=== PATIENT | female | born 1995 | race Caucasian/White ===

== ENCOUNTER 2017-08-24 21:51 | Inpatient (IN) | payer MEDICAID ==
[~2017-08-24] VITALS: Ht 160 cm; Wt 72.6 kg
[~2017-08-24 21:51] MED LIST: NORPTMEDS CO
[2017-08-24] MEDS ORDERED: PENICILLIN G POT 5MIL/D5 50ML 50 ML IV ONE (22:01)
[2017-08-24] MEDS ORDERED: LIDOCAINE 2%HCL (LOCAL ANESTH.) INJ 20ML MDV ONE (22:01)
[2017-08-24] MEDS ORDERED: LACT. RINGERS/OXYTOCIN 20UNITS 1,000 ML IV ONE (22:02)
[2017-08-24] MEDS ORDERED: LACT. RINGERS/OXYTOCIN 20UNITS 1,000 ML IV SCH (22:18)
[2017-08-24] MEDS ORDERED: PHISODERM TOP SOLN 240ML BTL TOP PRN (22:30)
[2017-08-24] MEDS ORDERED: WITCH HAZEL-GLYCERIN PAD TOP PRN (22:30)
[2017-08-24] MEDS ORDERED: DERMOPLAST 60ML BOTTLE TOP PRN (22:30)
[2017-08-24] MEDS ORDERED: LIDOCAINE 2%HCL (LOCAL ANESTH.) INJ 20ML MDV IJ ONE (22:30)
[2017-08-24 23:03] LABS: Basophils # (auto) 0.1 uL; Basophils % (auto) 0.4 % (0.0-2.0); Eosinophils # (auto) 0 uL; Eosinophils % (auto) 0.3 % (0.0-7.0); Hematocrit 37.7 % (36.0-46.0); Hemoglobin 12.5 g/dL (12.2-16.2); Lymphocytes # (auto) 1.4 uL; Lymphocytes % (auto) 10.3 % (10.0-50.0); Mean Corpuscular Hemoglobin 30.7 pg (28.0-32.0); Mean Corpuscular Hgb Conc. 33.3 g/dL (32.0-36.0); Mean Corpuscular Volume 92.3 fL (80.0-100.0); Mean Platelet Volume 9.6 fL (6.9-10.8); Neutrophils # (auto) 11.4 uL; Platelet Count (auto) 173 10^3/uL (140-450); Red Cell Distribution Width 14.2 % (11.8-14.3)
[2017-08-24 23:18] LABS: INR 0.88 (0.9-1.15); Partial Thromboplastin Time 26.2 sec (22.64-33.71); Prothrombin Time 9.6 sec (9.37-12.3)
[2017-08-24 23:24] LABS: Potassium 3.3 mmol/L (3.5-5.1)
[2017-08-24 23:28] LABS: Albumin 2.8 g/dL (3.4-5.0); BUN/Creatinine Ratio 8.9; Calcium 8.6 mg/dL (8.5-10.1)
[2017-08-24 23:31] LABS: Bilirubin, Total 0.3 mg/dL (0.2-1.0); Total Protein 7.3 g/dL (6.4-8.2)
[2017-08-25] MEDS: AZITHROMYCIN 250 MG TAB PO ONE ×2 (01:50→07:17)
[2017-08-25] MEDS ORDERED: ONDANSETRON HCL 4 MG/2 ML VIAL IV PRN (01:50)
[2017-08-25] MEDS ORDERED: IBUPROFEN 600 MG TAB PO ONE (03:01)
[2017-08-25 04:30] VITALS: BP 109/57
[2017-08-25 05:45] LABS: Urine Bilirubin Negative (Negative); Urine Blood 3+ /uL (Negative); Urine Ca Oxalate Crystal MANY (None Seen); Urine Color Red (Yellow); Urine Glucose Normal (Normal); Urine Ketone 2+ (Negative); Urine Mucus FEW (None Seen); Urine Nitrite Negative (Negative); Urine RBC 6389 /hpf (0 - 4); Urine Urobilinogen Normal (Negative); Urine pH 8.5 (5.0-8.0)
[2017-08-25 07:07] VITALS: BP 111/69
[2017-08-25] MEDS ORDERED: PREN-96 PO (07:10)
[2017-08-25 12:32] VITALS: BP 114/69
[2017-08-25] MEDS: IBUPROFEN 600 MG TAB PO PRN ×2 (14:30→21:45)
[2017-08-25 15:46] VITALS: BP 108/75
[2017-08-25 20:00] VITALS: BP 110/70
[2017-08-25 22:30] VITALS: BP 115/58
[2017-08-26 03:30] VITALS: BP 107/68
[2017-08-26 07:17] VITALS: BP 121/73
== END 2017-08-26 11:25 | disposition home or self-care (01) | DRG 560 ==
LOC: LDRP 21:51 → OBSVTOIN 21:51 → LDRP 22:37
PROVIDERS: ADMIT Specialist; ATTEND Specialist
PROC: 10E0XZZ Delivery of Products of Conception, External Approach (ICD-10-PCS; principal; 2017-08-24)
PROC: 10907ZC Drainage of Amniotic Fluid, Therapeutic from Products of Conception, Via Natural or Artificial Opening (ICD-10-PCS; 2017-08-24)
DX: O62.3 Precipitate labor (principal); Z37.0 Single live birth; Z3A.38 38 weeks gestation of pregnancy
CPT/HCPCS: 36415; 59025; 59409; 80053; 80307; 81001; 85025; 85610; 85730; 86592; 86703; 86762; 86850; 86900; 86901; 87340; 96365; 96366; 96374; J2405; J2540; J2590

== ENCOUNTER 2019-04-05 21:41 | Emergency (ER) | payer MEDICAID ==
[~2019-04-05] VITALS: Ht 160 cm; Wt 78.9 kg
[~2019-04-05 21:41] MED LIST changes: +PREN-96 PO
[2019-04-06 03:17] VITALS: BP 120/69
[2019-04-06] MEDS ORDERED: IBUPROFEN 800 MG TAB PO ONE (03:45)
[2019-04-06] MEDS ORDERED: METHOCARBAMOL 500 MG TAB PO ONE (03:45)
== END 2019-04-06 03:52 | disposition home or self-care (01) ==
LOC: ER 21:44
DX: R68.84 Jaw pain (principal); M62.838 Other muscle spasm; M54.2 Cervicalgia; R51 Headache; F17.210 Nicotine dependence, cigarettes, uncomplicated; Z79.899 Other long term (current) drug therapy; Y08.89XA Assault by other specified means, initial encounter; Y93.89 Activity, other specified; Y92.89 Other specified places as the place of occurrence of the external cause; Y99.8 Other external cause status
CPT/HCPCS: 70110; 70450; 70486; 72125; 81025

== ENCOUNTER 2025-01-09 07:40 | Emergency (ER) | payer MEDICAID, OTHER ==
[~2025-01-09] VITALS: Ht 160 cm; Wt 80.0 kg
--- NOTE | 2025-01-09 09:45 | ED.PDOC ---
HPI Allergic reaction HPI Comments She is a 29-year-old female who comes in with a new allergic reaction. She states she was going [place] the [place] yesterday to the [place] and noticed that she was having hives and itching all over her body. She took 2 Benadryl when she got home last night which helped a little bit but it is still very itchy. She states the only thing that she can think that she changes she uses an incident perfume oil that she used yesterday on her hand and thinks that might have been what caused him reaction. Denies and any other changes in food or medications. Chief Complaint: Rash Time Seen by MD: 09:41 Primary Care Provider: NONE Reviewed Notes: Nurses Notes, Medications, Allergies Allergies: Coded Allergies: NO KNOWN ALLERGIES (Unverified , 09/24/16) Home Meds Reported Medications Vit W/ Ferrous Fumara ( One Daily) Daily Tab, 1 TAB PO DAILY, #90 TAB 3 Refills 08/25/17 No Reported Medication (NO REPORTED MEDICATION) Ea, 0 CO DAILY, EA PATIENT HAS NO REPORTED MEDICATIONS 06/13/14 Information Source: Patient Mode of Arrival: Ambulatory Past Medical History PAST MEDICAL HISTORY: Denies Surgical History: Denies all surgeries LENS CUTTER History: No Pertinent LENS CUTTER History Social History Smoker: Cigarettes, Less Than 1 Pack/Day Alcohol: Denies ETOH Use Drugs: Denies Drug Use Lives In: Home Integumetry: reports: rash (itchy with hives) Physical Exam General Appearance: No Apparent Distress, Normal HEENT: Normal ENT Inspection, PERRL/EOMI, Pharynx Normal, TMs Normal Neck: Full Range of Motion, Non-Tender, Normal Inspection Respiratory: Lungs Clear, No Respiratory Distress, Normal Breath Sounds Cardiovascular: Regular Rate/Rhythm Breast Exam: Deferred Gastrointestinal: Non Tender, Normal Bowel Sounds, Soft Genitalia: Deferred Pelvic: Deferred Rectal: Deferred Extremities: Normal capillary refill, Normal inspection, Normal range of motion Neurologic: Alert, Normal Affect, Normal Mood Cerebellar Function: NOT DONE Reflexes: NOT DONE Skin: Dry, Normal Color, Rash (hives the chest arms and back) Lymphatic: No Adenopathy Was a procedure done? Was a procedure done?: No Differential diagnosis (all) Differential Diagnosis: Contact Dermatitis X-Ray, Labs, Meds, VS Vital Signs Date Time Temp Pulse Resp B/P (MAP) Pulse Ox O2 Delivery O2 Flow Rate FiO2 01/09/25 09:48 91 16 99 Room Air 01/09/25 09:48 98.3 91 16 115/76 (89) 99 98.3 01/09/25 07:59 98.3 91 16 115/76 (89) 99 98.3 X-Ray, Labs, Meds, VS Comment Patient seen and examined by me. Patient is having an allergic reaction most likely to her perfume oils that she used 2 days ago. She got better with the Benadryl but the symptoms came right back. Patient will be given Decadron 10 mg here and sent home with prednisone and instructed her to use cool showers and she can continue to use the Benadryl as needed. Patient felt much better after the Decadron with less itching and uncomfortableness. I explained that it might take a couple of days for the rash to go away that is completely normal. Time of 1ST Reevaluation: 10:07 Reevaluation 1ST: Improved Patient Education/Counseling: Diagnosis, Treatment, Prognosis, Need For Follow Up Family Education/Counseling: No Family Present Departure 1 Departure Time of Disposition: 10:07 Impression: Primary Impression: Allergic reaction Additional Impression: Hives Disposition: 01 HOME / SELF CARE / HOMELESS Condition: Good Additional Instructions: Start the prednisone tomorrow make sure you take all 4 days of it. Cool baths that will help the itching Lotion we will also help the itching Okay to take the Benadryl as needed e-Prescriptions Prednisone (Prednisone) 20 Mg Tab 40 MG PO DAILY@BREAKFAST for 5 Days, #5 MG Prov: HONEY MARIO 01/09/25 Discharged With: Self Critical Care Note Critical Care Time?: No Stability Stability form required: No HONEY MARIO Jan 09, 2025 09:45
[2025-01-09 09:48] VITALS: BP 115/76; PULSE 91; RESP 16; TEMP 98.3; O2SAT 99
[2025-01-09] MEDS: DexAMETHasone SOD PHOS 10MG/1ML VIAL INJ IM ONE (10:05)
[2025-01-09] MEDS ORDERED: PRED20TA2 PO (10:08)
== END 2025-01-09 10:22 | disposition home or self-care (01) ==
LOC: ER 07:40
DX: L50.9 Urticaria, unspecified (principal); T78.40XA Allergy, unspecified, initial encounter; F17.210 Nicotine dependence, cigarettes, uncomplicated; Z79.899 Other long term (current) drug therapy; X58.XXXA Exposure to other specified factors, initial encounter
CPT/HCPCS: 96372; 99283; J1100

== ENCOUNTER 2025-09-15 20:27 | Emergency (ER) | payer MEDICAID, OTHER ==
[~2025-09-15] VITALS: Ht 160 cm; Wt 78.0 kg
[~2025-09-15 20:27] MED LIST changes: +PRED20TA2 PO
--- NOTE | 2025-09-15 22:08 | ED.PDOC ---
Eye-HPI HPI Comments 21-YEAR-OLD FEMALE PRESENTS TO THE ED CHIEF COMPLAINT DENTAL PAIN. PATIENT COMPLAINING OF LEFT-SIDED LOWER BACK MOLAR DENTAL PAIN X3 DAYS. STATES HAS TRIED [id number] TYLENOL CLOTHES ICE HEAT WITH LITTLE RELIEF. HE HAS NUMBNESS, WEAKNESS, FEVER, CHILLS, DIFFICULTY SWALLOWING DIFFICULTY BREATHING OR SHORTNESS OF BREATH. Chief Complaint: Tooth Pain Time Seen by MD: 20:42 Primary Care Provider: NONE Reviewed Notes: Nurses Notes, Medications, Allergies Allergies: Coded Allergies: NO KNOWN ALLERGIES (Unverified , 09/24/16) Home Meds Active Scripts Prednisone (Prednisone) 20 Mg Tab, 40 MG PO DAILY@BREAKFAST for 5 Days, #5 MG Prov:HONEY MARIO SANITARY INSPECTOR 01/09/25 Reported Medications Vit W/ Ferrous Fumara ( One Daily) Daily Tab, 1 TAB PO DAILY, #90 TAB 3 Refills 08/25/17 No Reported Medication (NO REPORTED MEDICATION) Ea, 0 CO DAILY, EA PATIENT HAS NO REPORTED MEDICATIONS 06/13/14 Information Source: Patient Mode of Arrival: Ambulatory Past Medical History PAST MEDICAL HISTORY: Denies Surgical History: Denies all surgeries FLIGHT OPERATION COORDINATOR History: No Pertinent FLIGHT OPERATION COORDINATOR History Social History Smoker: Cigarettes, Less Than 1 Pack/Day Alcohol: Denies ETOH Use Drugs: Denies Drug Use Lives In: Home All Other Systems: Reviewed and Negative (see hpi) Physical Exam General Appearance: No Apparent Distress, Normal, Other (Molar number 38 with moderate decay no noted abscess or drainage) HEENT: Pharynx Normal, TMs Normal Neck: Full Range of Motion, Non-Tender, Normal, Normal Inspection Respiratory: Lungs Clear, No Respiratory Distress, Normal Breath Sounds Cardiovascular: No Murmur, Normal Peripheral Pulses, Regular Rate/Rhythm Breast Exam: Deferred Gastrointestinal: Non Tender, Soft Genitalia: Deferred Pelvic: Deferred Rectal: Deferred Extremities: No calf tenderness, Normal range of motion Musculoskeletal : Apperance: Normal Neurologic: Alert, No Motor Deficits, Normal Affect, Normal Mood, No Sensory Deficits Cerebellar Function: Normal Reflexes: NOT DONE Skin: Dry, Normal Color, Warm Lymphatic: No Adenopathy Was a procedure done? Was a procedure done?: No EENT DIFF Eye: N/A Ear: Otitis Media, Perforation, Pharyngitis Nose: N/A Mouth: N/A Sore Throat: Mian's Angina, Peritonsillar Abscess, Peritonsillar Cellulitis X-Ray, Labs, Meds, VS Vital Signs Date Time Temp Pulse Resp B/P (MAP) Pulse Ox O2 Delivery O2 Flow Rate FiO2 09/15/25 20:37 97.7 69 18 127/85 99 97.7 Current Medications Medications (Trade) Dose Ordered Sig/Charisma Route Start Time Stop Time Status Last Admin Acetaminophen/ Hydrocodone Bitart ([place] 10/325MG Tab) 1 tab ONCE ONCE PO 09/15/25 22:15 09/15/25 22:16 DC 09/15/25 22:18 Benzocaine (Hurricaine [place]) 1 spr ONCE ONCE MT 09/15/25 22:15 09/15/25 22:16 DC 09/15/25 22:17 Ketorolac Tromethamine (Toradol Injection) 60 mg ONCE ONCE IM 09/15/25 22:15 09/15/25 22:16 DC 09/15/25 22:17 Amoxicillin/ Clavulanate Potassium (Augmentin Tablet) 875 mg ONCE ONCE PO 09/15/25 22:15 09/15/25 22:16 DC 09/15/25 22:18 X-Ray, Labs, Meds, VS Comment Patient treated with Augmentin 875, [place] 10 mg p.o., Toradol 60 mg IM and Hurricaine spray. Script trial of clinda in home advised take medication as prescribed side effects discussed. Advised to follow up with make an appointment with dental for resolution. ER return precautions given patient indicates understanding and agrees with discharge plan of care. Time of 1ST Reevaluation: 20:42 Reevaluation 1ST: Unchanged Time of 2ND Reevaluation: 22:22 Reevaluation 2ND: Improved Patient Education/Counseling: Diagnosis, Treatment, Need For Follow Up Family Education/Counseling: No Family Present SEPSIS Sepsis Screen Date sepsis recognized/suspect: Sep 15, 2025 Time Sepsis recognized/suspect: 2038 Recent Procedure: No On Antibiotic Therapy: No Respiratory Rate >20: No Heart Rate >90: No Temp<36 C (96.8 F) or >38.3 C: No SBP <90 or MAP <65 mmHG: No New Acute Mental Status Change: No Is the patient on CPAP, BIPAP,: No Vital Signs Date Time Temp Pulse Resp B/P (MAP) Pulse Ox O2 Delivery O2 Flow Rate FiO2 09/15/25 20:37 97.7 69 18 127/85 99 97.7 Medications Medications Dose Ordered Sig/Charisma Route Start Time Stop Time Status Last Admin Dose Admin Acetaminophen/ Hydrocodone Bitart 1 tab ONCE ONCE PO 09/15/25 22:15 09/15/25 22:16 DC 09/15/25 22:18 Amoxicillin/ Clavulanate Potassium 875 mg ONCE ONCE PO 09/15/25 22:15 09/15/25 22:16 DC 09/15/25 22:18 Benzocaine 1 spr ONCE ONCE MT 09/15/25 22:15 09/15/25 22:16 DC 09/15/25 22:17 Ketorolac Tromethamine 60 mg ONCE ONCE IM 09/15/25 22:15 09/15/25 22:16 DC 09/15/25 22:17 Departure 1 Departure Time of Disposition: 22:23 Impression: Primary Impression: Dental infection Additional Impression: Pain due to dental caries Disposition: 01 HOME / SELF CARE / HOMELESS Condition: Stable Discharged With: Self Critical Care Note Critical Care Time?: No Stability Stability form required: DARYL Perea Sep 15, 2025 22:07
[2025-09-15] MEDS: BENZOCAINE (DENTAL) 20 % SPRAY 60ML MT ONE (22:17)
[2025-09-15] MEDS: KETOROLAC TROMETH 60MG/2ML VIAL IM ONE (22:17)
[2025-09-15 22:18] VITALS: BP 124/84; PULSE 63; RESP 19; TEMP 98; O2SAT 100
[2025-09-15] MEDS: HYDROcodone-ACET 10/325MG TAB PO ONE (22:18)
== END 2025-09-15 22:26 | disposition home or self-care (01) ==
LOC: ER 20:27
DX: K04.7 Periapical abscess without sinus (principal); K02.9 Dental caries, unspecified; F17.210 Nicotine dependence, cigarettes, uncomplicated; Z79.899 Other long term (current) drug therapy; Z79.52 Long term (current) use of systemic steroids
CPT/HCPCS: 96372; 99284; J1885

== ENCOUNTER 2025-09-16 20:26 | Emergency (ER) | payer MEDICAID ==
[~2025-09-16] VITALS: Ht 160 cm; Wt 78.6 kg
--- NOTE | 2025-09-16 21:31 | ED.PDOC ---
Eye-HPI HPI Comments Pt presents with cc of left side facial pain and swelling x 4 days. Pt was seen here yesterday and received treatment, but states her symptoms have continued to worsen. PATIENT ALSO FOLLOW UP WITH DENTIST YESTERDAY WAS PRESCRIBED ANTIBIOTICS AND PAIN MEDICATION. Pain is currently a 07/08. Chief Complaint: Face pain Time Seen by MD: 20:49 Primary Care Provider: NONE Reviewed Notes: Nurses Notes, Medications, Allergies Allergies: Coded Allergies: NO KNOWN ALLERGIES (Unverified , 09/24/16) Home Meds Active Scripts Prednisone (Prednisone) 20 Mg Tab, 40 MG PO DAILY@BREAKFAST for 5 Days, #5 MG Prov:HONEY MARIO TAG MAKER 01/09/25 Reported Medications Vit W/ Ferrous Fumara ( One Daily) Daily Tab, 1 TAB PO DAILY, #90 TAB 3 Refills 08/25/17 No Reported Medication (NO REPORTED MEDICATION) Ea, 0 CO DAILY, EA PATIENT HAS NO REPORTED MEDICATIONS 06/13/14 Information Source: Patient Mode of Arrival: Ambulatory Past Medical History PAST MEDICAL HISTORY: Denies Surgical History: Denies all surgeries SHIPPING POINT INSPECTOR History: No Pertinent SHIPPING POINT INSPECTOR History Social History Smoker: Cigarettes, Less Than 1 Pack/Day Alcohol: Denies ETOH Use Drugs: Denies Drug Use Lives In: Home All Other Systems: Reviewed and Negative (SEE HPI) Physical Exam General Appearance: No Apparent Distress, Normal HEENT: Pharynx Normal, TMs Normal, Other (MODERATE DECAY BACK LOWER LEFT MOLARS NOTED MILD TO MODERATE LEFT-SIDED JAW SWELLING) Neck: Full Range of Motion, Non-Tender Respiratory: Lungs Clear, No Respiratory Distress, Normal Breath Sounds Cardiovascular: No Edema, No JVD, No Murmur, No Gallop, Normal Peripheral Pulses, Regular Rate/Rhythm Breast Exam: Deferred Gastrointestinal: No Organomegaly, Non Tender, No Pulsatile Mass, Normal Bowel Sounds, Soft Genitalia: Deferred Pelvic: Deferred Rectal: Deferred Extremities: Normal range of motion Musculoskeletal : Apperance: Normal Neurologic: Alert, No Motor Deficits, Normal Affect, Normal Mood, No Sensory Deficits Cerebellar Function: Normal Reflexes: NOT DONE Skin: Dry, Normal Color, Warm Lymphatic: No Adenopathy Was a procedure done? Was a procedure done?: No EENT DIFF Eye: N/A Ear: Perforation, Dental, Pharyngitis X-Ray, Labs, Meds, VS Vital Signs Date Time Temp Pulse Resp B/P (MAP) Pulse Ox O2 Delivery O2 Flow Rate FiO2 09/16/25 21:49 98.7 56 17 122/82 (95) 99 98.7 09/16/25 21:49 56 17 99 Room Air 09/16/25 20:27 98.4 62 18 130/87 98 98.4 Current Medications Medications (Trade) Dose Ordered Sig/Charisma Route Start Time Stop Time Status Last Admin Acetaminophen/ Hydrocodone Bitart ([place] 5/325MG Tab) 1 tab ONCE ONCE PO 09/16/25 21:45 09/16/25 21:46 DC 09/16/25 21:49 X-Ray, Labs, Meds, VS Comment ANTIBIOTICS PRESCRIBED BY THE DENTIST FOLLOW UP WITH DENTAL DISCUSSED ER RETURN PRECAUTIONS GIVEN PATIENT INDICATES UNDERSTANDING AGREES WITH DISCHARGE PLAN OF CARE Time of 1ST Reevaluation: 20:49 Reevaluation 1ST: Unchanged Time of 2ND Reevaluation: 21:31 Reevaluation 2ND: Improved Patient Education/Counseling: Diagnosis, Treatment, Need For Follow Up Family Education/Counseling: No Family Present SEPSIS Sepsis Screen Date sepsis recognized/suspect: Sep 16, 2025 Time Sepsis recognized/suspect: 2029 Recent Procedure: No On Antibiotic Therapy: No Respiratory Rate >20: No Heart Rate >90: No Temp<36 C (96.8 F) or >38.3 C: No SBP <90 or MAP <65 mmHG: No New Acute Mental Status Change: No Is the patient on CPAP, BIPAP,: No Vital Signs Date Time Temp Pulse Resp B/P (MAP) Pulse Ox O2 Delivery O2 Flow Rate FiO2 09/16/25 21:49 98.7 56 17 122/82 (95) 99 98.7 09/16/25 21:49 56 17 99 Room Air 09/16/25 20:27 98.4 62 18 130/87 98 98.4 Medications Medications Dose Ordered Sig/Charisma Route Start Time Stop Time Status Last Admin Dose Admin Acetaminophen/ Hydrocodone Bitart 1 tab ONCE ONCE PO 09/16/25 21:45 09/16/25 21:46 DC 09/16/25 21:49 Departure 1 Departure Time of Disposition: 21:30 Impression: Primary Impression: Pain due to dental caries Additional Impression: Dental abscess Disposition: HOME / SELF CARE / HOMELESS Condition: Stable Discharged With: Self Critical Care Note Critical Care Time?: No Stability Stability form required: DARYL Perea Sep 16, 2025 21:31
[2025-09-16 21:49] VITALS: BP 122/82; PULSE 56; RESP 17; TEMP 98.7; O2SAT 99
[2025-09-16] MEDS: HYDROcodone-ACET 5/325MG TAB PO ONE (21:49)
== END 2025-09-16 22:04 | disposition home or self-care (01) ==
LOC: ER 20:26
DX: K04.7 Periapical abscess without sinus (principal); F17.210 Nicotine dependence, cigarettes, uncomplicated; Z79.899 Other long term (current) drug therapy

== ENCOUNTER 2025-09-18 09:30 | Emergency (ER) | payer MEDICAID ==
[~2025-09-18] VITALS: Ht 160 cm; Wt 78.1 kg
[2025-09-18 09:30] VITALS: BP 116/72; PULSE 82; RESP 18; TEMP 97.5; O2SAT 98
--- NOTE | 2025-09-18 10:05 | ED.PDOC ---
Eye-HPI HPI Comments This is a 29 year old female presenting to the ED with chief complaint of mouth swelling. Patient reports that she has had a previous dental abscess to her left lower molars that she is currently on Amoxicillin for prescribed by her dentist. Patient relays that her swelling and pain has worsened since yesterday, coming to the ED due to the swelling radiating down her neck. Patient denies any drainage, bleeding, fever, or difficulty breathing. Chief Complaint: Abscess Time Seen by MD: 10:03 Primary Care Provider: NONE Reviewed Notes: Nurses Notes, Medications, Allergies Allergies: Coded Allergies: NO KNOWN ALLERGIES (Unverified , 09/24/16) Home Meds Active Scripts Clindamycin Hcl (Clindamycin Hcl) 300 Mg Cap, 1 CAP PO TID for 10 Days, #30 CAP Prov:TWYLA SALINAS MD 09/18/25 Prednisone (Prednisone) 20 Mg Tab, 40 MG PO DAILY@BREAKFAST for 5 Days, #5 MG Prov:HONEY MARIO WORK CAR OPERATOR 01/09/25 Reported Medications Vit W/ Ferrous Fumara ( One Daily) Daily Tab, 1 TAB PO DAILY, #90 TAB 3 Refills 08/25/17 No Reported Medication (NO REPORTED MEDICATION) Ea, 0 CO DAILY, EA PATIENT HAS NO REPORTED MEDICATIONS 06/13/14 Information Source: Patient Mode of Arrival: Ambulatory Timing: Days Duration: Since onset Prehospital treatment: None Mouth Location: Left, Lower, Tooth/Teeth, Gums Onset: Spontaneous Throat Exposed to: None Eye Context Recent: Antibiotic Use Past Medical History PAST MEDICAL HISTORY: Denies Surgical History: Denies all surgeries SHIP WASHER History: No Pertinent SHIP WASHER History Family History Family History: Reviewed,noncontributory to illness Social History Smoker: Cigarettes, Less Than 1 Pack/Day Alcohol: Denies ETOH Use Drugs: Denies Drug Use Lives In: Home Constitutional: denies: chills, diaphoresis, fatigue, fever, malaise, sweats, weakness, others EENTM: reports: mouth pain, mouth swelling; denies: blurred vision, double vision, ear bleeding, ear discharge, ear drainage, ear pain, ear ringing, eye pain, eye redness, hearing loss, nasal discharge, nose bleeding, nose congestion, nose pain, photophobia, tearing, throat pain, throat swelling, voice changes, others Respiratory: denies: cough, hemoptysis, orthopnea, SOB at rest, shortness of breath, SOB with excertion, stridor, wheezing, others Cardiovascular: denies: chest pain, dizzy spells, diaphoresis, Dyspnea on exertion, edema, irregular heart beat, left arm pain, lightheadedness, palpitat ions, PND, syncope, others Gastrointestinal: denies: abdomen distended, abdominal pain, blood streaked bow els, constipated, diarrhea, dysphagia, difficulty swallowing, hematemesis, melena, nausea, poor appetite, poor fluid intake, rectal bleeding, rectal pain, vomiting, others Genitourinary: denies: abnormal vagina bleeding, burning, dyspareunia, dysuria, flank pain, frequency, hematuria, incontinence, pain, , vagina discharge, urgency, others Neurological: denies: dizziness, fainting, headache, left sided numbness, left sided weakness, numbness, paresthesia, pre-existing deficit, right sided numbness, right sided weakness, seizure, speech problems, tingling, tremors, weakness, others Musculoskeletal: denies: back pain, gout, joint pain, joint swelling, muscle pain, muscle stiffness, neck pain, others Integumetry: denies: bruises, change in color, change in hair/nails, dryness, laceration, lesions, lumps, rash, wounds, others Allergic/Immunocompromised: denies: Difficulty Healing, Frequent Infections, Hives, Itching, others Hematologic/Lymphatic: denies: anemia, blood clots, easy bleeding, easy bruisi ng, swollen glands, others Endocrine: denies: excessive hunger, excessive sweating, excessive thirst, exce ssive urination, flushing, intolerance to cold, intolerance to heat, unexplained weight gain, unexplained weight loss, others Psychiatric: denies: anxiety, bipolar disorder, depression, hopeless, panic disorder, schizophrenia, sleepless, suicidal, others All Other Systems: Reviewed and Negative Physical Exam General Appearance: Moderate Distress, Normal HEENT: Normal ENT Inspection, Pharynx Normal, TMs Normal, Other (Left the patient is having swelling) Neck: Full Range of Motion, Non-Tender, Normal, Normal Inspection Respiratory: Chest Non-Tender, Lungs Clear, No Accessory Muscle Use, No Respiratory Distress, Normal Breath Sounds Cardiovascular: No Edema, No JVD, No Murmur, No Gallop, Normal Peripheral Pulses, Regular Rate/Rhythm Breast Exam: Deferred Gastrointestinal: No Organomegaly, Non Tender, No Pulsatile Mass, Normal Bowel Sounds, Soft Genitalia: Deferred Pelvic: Deferred Rectal: Deferred Extremities: No calf tenderness, Normal capillary refill, Normal inspection, Normal range of motion, Non-tender, No pedal edema Musculoskeletal : Apperance: Normal Neurologic: Alert, military personnel specialist II-XII nml as Tested, No Motor Deficits, Normal Affect, Normal Mood, No Sensory Deficits Cerebellar Function: Normal Reflexes: Normal Skin: Dry, Normal Color, Warm Peripheral Pulses: 3+ Radial (R), 3+ Radial (L) Lymphatic: No Adenopathy Was a procedure done? Was a procedure done?: No EENT DIFF Eye: N/A Mouth: Other (Dental abscess) Sore Throat: Other X-Ray, Labs, Meds, VS Vital Signs Date Time Temp Pulse Resp B/P (MAP) Pulse Ox O2 Delivery O2 Flow Rate FiO2 09/18/25 09:30 97.5 82 18 116/72 98 97.5 Patient alert. Came in because of left jaw swelling. Was seen here recently. Vital stable. Reviewed her previous visit. Currently on amoxicillin. Was given prescription of clindamycin. She will need to follow up with the oral surgeon for removal of her back teeth. No shortness a breath. No leg swelling. No acute process. Good air entry. Was given prescription of clindamycin antibiotic. Explained to the patient. Was told to follow up with her primary care physician. Was told to come back if there is any problem. Time of 1ST Reevaluation: 10:15 Reevaluation 1ST: Unchanged Patient Education/Counseling: Diagnosis, Treatment Family Education/Counseling: No Family Present SEPSIS Sepsis Screen Date sepsis recognized/suspect: Sep 18, 2025 Time Sepsis recognized/suspect: 929 Recent Procedure: No On Antibiotic Therapy: No Respiratory Rate >20: No Heart Rate >90: No Temp<36 C (96.8 F) or >38.3 C: No SBP <90 or MAP <65 mmHG: No New Acute Mental Status Change: No Is the patient on CPAP, BIPAP,: No Vital Signs Date Time Temp Pulse Resp B/P (MAP) Pulse Ox O2 Delivery O2 Flow Rate FiO2 09/18/25 09:30 97.5 82 18 116/72 98 97.5 Departure 1 Departure Time of Disposition: 17:52 Impression: Primary Impression: Dental abscess Disposition: 30 STILL A PATIENT Condition: Good e-Prescriptions Clindamycin Hcl (Clindamycin Hcl) 300 Mg Cap 1 CAP PO TID for 10 Days, #30 CAP Prov: TWYLA SALINAS MD 09/18/25 Discharged With: Self Critical Care Note Critical Care Time?: No Stability Stability form required: No Heart Score Heart Score: Heart Score Response (Comments) Value History N/A 0 EKG N/A 0 Age N/A 0 Risk Factors N/A 0 Troponin N/A 0 Total 0 I personally scribed for TWYLA SALINAS MD ([email or web address]) on 09/18/25 at 10:05. Electronically submitted by Gonzalo Sanders ([email or web address]). TWYLA ASLINAS MD Sep 18, 2025 10:05
[2025-09-18] MEDS ORDERED: CLIN1CAP70 PO (10:14)
== END 2025-09-18 10:10 | disposition left against medical advice (07) ==
LOC: ER 09:30
DX: K04.7 Periapical abscess without sinus (principal); F17.210 Nicotine dependence, cigarettes, uncomplicated; Z79.899 Other long term (current) drug therapy; Z79.52 Long term (current) use of systemic steroids